=== PATIENT | male | born 1950 | race Caucasian/White ===

== ENCOUNTER → 2017-11-13 | Outpatient (CLI) | payer MEDICARE, OTHER ==
[~2017-11-13] MED LIST: AMOXICILLIN500 MG PO; ASPIR-TRIN325 MG; CLARITIN10 MG PO; DAILY VITAMIN1 EAC2 PO; EXFORGE 5 MG; FISH OIL500 M1 PO; LASIX20 MG PO; LIPITOR40 MG; NORCO 7.5-3251 EACH PO; PRILOSEC40 MG; PROZAC20 MG; VICODIN 500 MG-1 TAB PO; ZANTAC 300300 MG PO
[2017-11-13 14:55] LABS: BASO % 0.4 % (0.0-1.0); EOS # 0.1 10*3/uL (0.0-0.4); EOS % 1.5 % (1.0-4.0); HEMATOCRIT 40.8 % (42.0-52.0); LYMPH # 2.2 10*3/uL (1.3-4.4); LYMPH % 26.9 % (27.0-41.0); MEAN CELL VOLUME 91.9 fl (80.0-94.0); MEAN CORPUSCULAR HGB 31.5 pg (27.0-31.0); MEAN CORPUSCULAR HGB CONC 34.3 g/dl (33.0-37.0); MEAN PLATELET VOLUME 9.4 fl (9.6-12.3); MONO # 0.6 10*3/uL (0.1-1.0); MONO % 7.1 % (3.0-9.0); NEUT # 5.1 10*3/uL (2.3-7.9); NEUT % 63.9 % (47.0-73.0); NUCLEATED RED BLOOD CELL 0.2 % (0.0-0.0); PLATELET COUNT AUTOMATED 171 10*3/uL (130-400); RED BLOOD COUNT 4.44 10*6/uL (4.50-5.90); RED CELL DISTRI WIDTH 12.8 % (0-14.5)
[2017-11-13 15:12] LABS: ALBUMIN 3.8 gm/dl (3.1-4.5); ALKALINE PHOSPHATASE 73 U/L (45-117); BILIRUBIN, DIRECT 0.1 mg/dL (0.0-0.2); BUN 12 mg/dl (7-24); CHLORIDE 107 mmol/L (98-107); POTASSIUM 3.8 mmol/L (3.5-5.1); SGOT/AST 19 IU/L (3-35); SGPT/ALT 34 U/L (12-78); SODIUM 140 mmol/L (136-145); TOTAL PROTEIN 7.3 gm/dL (6.4-8.2)
== END | disposition home or self-care (01) ==
LOC: CT 14:34
PROVIDERS: Family Medicine
DX: K76.0 Fatty (change of) liver, not elsewhere classified (principal); J98.11 Atelectasis; R06.02 Shortness of breath; Z98.1 Arthrodesis status

== ENCOUNTER → 2017-11-29 | Outpatient (CLI) | payer MEDICARE, OTHER ==
--- NOTE | ~2017-11-29 | PF ---
[place], [place] PULMONARY FUNCTION TEST NAME: ALESSANDRA VEGA JR [facility] #: [id number] UNIT #: [id number] ROOM: DOCTOR: ATILIO JIN MD,JOVI BIRTHDATE: [birth year] DOS: 11/29/2017 PULMONARY FUNCTION TEST ORDERED BY: Dr. John Narayanan. HISTORY: The patient recorded as a 67-year-old outpatient, male, height of 66 inches, weight of 217 pounds with BMI 35. The testing was done for patient with the diagnosis of COPD with symptoms of nonproductive cough, dyspnea with exertion, rare wheezing. There was no tobacco use reported. SPIROMETRY: The FVC was recorded 2.41 liters at 64% predicted value, moderately decreased. FEV1, the patient was noted 2.03 liters at 69% of predicted value, moderately decreased as well. The ratio of FEV1/FVC was recorded at 77%, partial improvement occurred postbronchodilator for this patient, but not meeting the significant improvement of the postbronchodilator FEV1 by ATS criteria. Flow volume loop for the patient shows evidence of obstructive airway pattern. LUNG VOLUME: Thoracic gas volume recorded as 67%, residual volume 90%, total lung capacity of 68%. RV/TLC ratio 188%. Airway resistance and passive conductance noted abnormal, partial improvement post-bronchodilator test. FINAL IMPRESSION: The test was suggestive evidence of bronchial asthma. The lung diffusion could not be performed for the patient. JOVI TRIMBLE MD CM:PFREPORT:PULMONARY FUNCTION TEST 1039 00 JOVI JIN MD
== END | disposition home or self-care (01) ==
LOC: CP 06:52
DX: J44.9 Chronic obstructive pulmonary disease, unspecified (principal)

== ENCOUNTER → 2018-02-06 | Outpatient (CLI) | payer MEDICARE, OTHER ==
[~2018-02-06] MED LIST changes: +B12,B-12,B 12500 MC1 PO; +COLCHICINE0.6 M1 PO; +IBUPROFEN400 MG PO; -LIPITOR40 MG; +LIPITOR40 MG PO; +VALTREX1000 MG PO; +VITAMIN D5000 UNI1 PO
== END | disposition home or self-care (01) ==
LOC: RAD 07:38
DX: J98.6 Disorders of diaphragm (principal)

== ENCOUNTER 2018-04-23 21:06 | Inpatient (IN) | payer MEDICARE, OTHER ==
[~2018-04-23] VITALS: Ht 167.6 cm; Wt 101.7 kg
--- NOTE | ~2018-04-23 | PR ---
[place], [place] PROGRESS NOTE NAME: ALESSANDRA VEGA JR [facility] #: [id number] UNIT #: [id number] ROOM: 402 DOCTOR: ATILIO JIN MD,JOVI BIRTHDATE: [birth year] DOS: 04/26/2018 SUBJECTIVE: The patient was noted comfortable at this time with reduction of the chest pain reported by the patient. Denies symptoms of fever or chills. He has been noted with occasional pain, which was also reported in the right upper quadrant and in the right lower chest. There were no symptoms of coughing or wheezing reported. PHYSICAL EXAMINATION: VITAL SIGNS: Low-grade fever of 99.5 degree Fahrenheit, normal temperature, respiratory rate 18, heart rate 88, blood pressure 127/67. Pulse oxygen saturation on room air was 95% saturation. HEENT: No acute change. CARDIOVASCULAR: S1, S2 is audible. LUNGS: The patient was noted with decreased breath sounds in right lower chest. There was no wheezing or crackles. ABDOMEN: Soft, nontender. EXTREMITIES: Without acute edema. LABORATORY DATA: The patient's CBC today, WBC count normal, hemoglobin 12.3, eosinophils of 4.3%. BMP this morning, normal BUN and creatinine. IMPRESSION: 1. The patient with acute pericarditis, currently treated with colchicine. The patient on steroids, anti-inflammatory medication per Cardiology services. 2. Small loculated right pleural fluid area of atelectasis. There was no evidence of clinical pneumonia ____ at this time was ____ seen. PLAN OF MANAGEMENT: Continuation of current plan of management as in progress. Close monitoring for any abnormal symptoms. The patient to report to the office post-discharge. Continue other supportive therapy, plan of management, care plan and treatment and care. JOVI TRIMBLE MD CM:BREONNA [phone] JOVI JIN MD 04/27/18 0154 interface
--- NOTE | ~2018-04-23 | EKG ---
[place], [place] ELECTROCARDIOGRAM REPORT NAME: ALESSANDRA VEGA JR UNIT #: [id number] ROOM: 402 DOCTOR: LOGAN DRAFT REPORT BIRTHDATE: [birth year] [facility] Test Date: 2018-04-24 Test Time: 00:05:46 Pat Name: ALESSANDRA VEGA Department: Room: 402 Gender: M Data Visualization Developer: : 1950 Requested By: SANJEEV NAQVI Order Number: [id number] Reading MD: Russ Elaine MD Measurements Intervals [place] Rate: 103 P: 17 WA: 139 QRS: 31 QRSD: 99 T: 13 QT: 339 QTc: 444 Interpretive Statements Sinus tachycardia Abnormal R-wave progression, late transition Minimal ST elevation, inferior leads Baseline wander in lead(s) V3,V5 Compared to previous tracing, no significant change Electronically Signed On 04-24-2018 18:09:04 PST by Russ Elaine MD CM:EKGRPT:ELECTROCARDIOGRAM REPORT 0005 1809 SANJEEV MYERS DRAFT REPORT SANJEEV NAQVI DO
--- NOTE | ~2018-04-23 | EKG ---
[place], [place] ELECTROCARDIOGRAM REPORT NAME: ALESSANDRA VEGA JR UNIT #: [id number] ROOM: 402 DOCTOR: LOGAN DRAFT REPORT BIRTHDATE: [birth year] [facility] Test Date: 2018-04-24 Test Time: 02:41:09 Pat Name: ALESSANDRA VEGA Department: Room: 402 Gender: M Category Development Analyst: Nancy Ortiz : 1950 Requested By: SANJEEV NAQVI Order Number: [id number] Reading MD: Russ Elaine MD Measurements Intervals [place] Rate: 89 P: 13 CO: 140 QRS: -8 QRSD: 105 T: 21 QT: 363 QTc: 442 Interpretive Statements Sinus rhythm Abnormal R-wave progression, late transition Inferior infarct, old Minimal ST elevation, anterolateral leads No change from earlier ECG this date. Electronically Signed On 04-24-2018 18:09:51 PST by Russ Elaine MD CM:EKGRPT:ELECTROCARDIOGRAM REPORT [id number] 1809 SANJEEV MYERS DRAFT REPORT SANJEEV NAQVI DO
--- NOTE | ~2018-04-23 | PR ---
[place], [place] PROGRESS NOTE NAME: ALESSANDRA VEGA JR UNIT #: [id number] ROOM: 402 DOCTOR: JORGE FRYE MD BIRTHDATE: [birth year] DOS: 04/26/2018 SUBJECTIVE: The patient was seen at his bedside today on 04/26/2018 for followup of his acute pericarditis and pericardial effusion. Last evening, he did develop a fever. It has resolved overnight. The maximum recorded temperature was 99.5. This morning, he feels better. His chest pains are all gone and nausea is very minimal. PHYSICAL EXAMINATION: VITAL SIGNS: Today, his pulse is 87 and regular, blood pressure is 128/64. GENERAL: He is afebrile this morning. NECK: His neck is supple. He has no jugular distention. Carotids are full. LUNGS: Respirations are unlabored. Chest is clear to auscultation and percussion. HEART: Has a regular rhythm with an S4 gallop. There is no murmur or rub. ABDOMEN: Benign. EXTREMITIES: Showed no edema. LABORATORY DATA: Hemoglobin today is 12.3 with a white count of 6700, platelet count 170,000. Sodium is 141, potassium 3.7, BUN 12, and creatinine 0.96. IMPRESSION: 1. Acute pericarditis. 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 He is responding to anti-inflammatory agents as well as colchicine. I did have to decrease the dose of colchicine because of nausea, but he still seems to be doing well. 2. Recent cervical fusion. 3. Hypertension. 4. Hyperlipidemia. PLAN: From a cardiac standpoint, he may be discharged when he is ready to go, and we will see him back in the office for followup. My one concern is that he would develop constriction given the thickness of his pericardium now, but hopefully the colchicine will prevent this. I thank the hospitalist physicians for asking our advice regarding his care. [place], [place] PROGRESS NOTE NAME: ALESSANDRA VEGA JR [facility] UNIT #: [id number] ROOM: 402 DOCTOR: JORGE FRYE MD BIRTHDATE: [birth year] JORGE FRYE MD CM:PNTRANS [id number] 0002 JORGE FRYE MD 04/27/18 0001 interface
--- NOTE | ~2018-04-23 | EKG ---
[place], [place] ELECTROCARDIOGRAM REPORT NAME: ALESSANDRA VEGA JR UNIT #: [id number] ROOM: 402 DOCTOR: LOGAN DRAFT REPORT BIRTHDATE: [birth year] [facility] Test Date: 2018-04-23 Test Time: 21:11:15 Pat Name: ALESSANDRA VEGA Department: ER Room: 402 Gender: M Teacher Citizenship: Vick Burrell : 1950 Requested By: SANJEEV NAQVI Order Number: [id number] Reading MD: Russ Elaine MD Measurements Intervals [place] Rate: 110 P: 43 CO: 154 QRS: 90 QRSD: 96 T: 23 QT: 327 QTc: 443 Interpretive Statements Sinus tachycardia Borderline right axis deviation Abnormal R-wave progression, late transition Borderline ST elevation, lateral leads Electronically Signed On 04-24-2018 18:06:59 PST by Russ Eliane MD CM:EKGRPT:ELECTROCARDIOGRAM REPORT 1806 SANJEEV MYERS DRAFT REPORT SANJEEV NAQVI DO
--- NOTE | ~2018-04-23 | PR ---
[place], [place] PROGRESS NOTE NAME: ALESSANDRA VEGA JR [facility] #: [id number] UNIT #: [id number] ROOM: 402 DOCTOR: JORGE FRYE MD BIRTHDATE: [birth year] DOS: 04/25/2018 CARDIOLOGY PROGRESS NOTE SUBJECTIVE: The patient was seen at his bedside today, 04/25/2018 for followup of his pericardial effusion and chest pain. He is a 68-year-old man who has had a complicated recent history. 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 He did eventually undergo right diaphragmatic plication at [facility] in [place]. He tolerated the procedure well and was in rehab with good progress. A few days ago, he suddenly developed pleuritic chest pain. CT angiogram of the chest showed no evidence for pulmonary emboli, but he did have marked thickening of the pericardium with a modest pericardial effusion. He was hospitalized and we were asked to see the patient. He did not show any signs of tamponade and I reviewed his CT scans. The pericardial thickening is new compared to a previous CTA dated 11/13/2017, the pericardial effusion and pericardial thickening are new. An echocardiogram showed normal left ventricular function and no evidence for tamponade. The effusion appeared to be quite small. We did start him on colchicine and ibuprofen. His pains have dramatically improved, but now he has nausea, most likely due to the colchicine. PHYSICAL EXAMINATION: VITAL SIGNS: Today, his pulse is 84 and regular, blood pressure is 122/84. He is afebrile. NECK: Supple. He has no jugular distention or hepatojugular reflux. Carotids are full. LUNGS: Respirations are unlabored. Chest has decreased breath sounds at the right base, but is otherwise clear. HEART: Has a regular rhythm without murmurs, rubs, or gallops. I did not hear a rub specifically. ABDOMEN: Benign. EXTREMITIES: Showed no edema. IMPRESSION: 1. Acute pericarditis. 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 A viral infection may have been the cause. He is responding to anti-inflammatory agents along with colchicine, but has some nausea. 2. Recent cervical fusion. 3. Hypertension. 4. Hyperlipidemia. PLAN: We will decrease the colchicine to once a day and give it with food. Ibuprofen will be given as needed. I think that he can be discharged to home since he does not have any hemodynamic compromise. We will plan to see him in the office in the next month for followup. We will likely keep him on colchicine for 3 months and then repeat his echocardiogram to make sure that he has not developed any signs of constriction. [place], [place] PROGRESS NOTE NAME: ALESSANDRA VEGA JR UNIT #: [id number] ROOM: 402 DOCTOR: JORGE FRYE MD BIRTHDATE: [birth year] I thank the hospitalist physicians for asking our advice regarding his care. JORGE FRYE MD CM:PNTRANS [id number] JORGE FRYE MD 04/26/18 0625 interface
--- NOTE | ~2018-04-23 | CON ---
[place], [place] REPORT OF CONSULTATION NAME: ALESSANDRA VEGA JR [facility] #: [id number] UNIT #: [id number] ROOM: 402 DOCTOR: JOVI RENTERIA MD BIRTHDATE: [birth year] DOS: 04/25/2018 PULMONARY CONSULTATION, EVALUATION AND MANAGEMENT REASON FOR CONSULTATION: Assess the patient's symptoms of shortness of breath. HISTORY OF PRESENT ILLNESS: This is a 68-year-old white male who has been known to me from the past. The patient has been initially seen in my office on 01/30/2018. 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 The patient has been seen by Dr. Villela from [facility] in [place], [place]. The patient underwent surgical intervention, ____ of the right hemidiaphragm in 02/2018. The patient was noted good to have response to the treatment. He has been admitted to the hospital under care of the hospitalist service on the date of 04/24/2018 as the patient reporting symptoms of having increased shortness of breath that was occurring for this patient couple of days prior to admission to the hospital. The patient stated that he was panicking probably as well. Denies symptoms of fever or chills. The patient denies any symptoms of hemoptysis. He does have mild cough without any sputum expectoration. The patient denies symptoms of any chest trauma. He does complain of pain sharp at that time, on a scale of 1-10 is 6-7 in the right upper quadrant area. REVIEW OF SYSTEMS: Remaining systems were reviewed as follows: EYES: Denies burning, redness, or tenderness. EARS, NOSE, AND THROAT: Denies sore throat, hoarseness, otalgia, postnasal drainage or epistaxis. CARDIOVASCULAR: Denies anginal pain, edema, pain of the lower extremities or palpitations. GASTROINTESTINAL: Symptoms of nausea. The patient reported vomiting, hematemesis, melena, hematochezia, abdominal pain, hematemesis or melena. GENITOURINARY: No dysuria, suprapubic pain, hematuria. MUSCULOSKELETAL: No joint pain, redness, or tenderness. SKIN: Denies abnormal lesions or rashes. MUSCULOSKELETAL SYMPTOMS: Acute joint pain, redness, tenderness, or any deformities. CENTRAL NERVOUS SYSTEM: Denies any dizziness, headache, diplopia, or syncopal episodes, tingling sensation in the lower extremity or seizures. NEUROPSYCHIATRIC: The patient noted a significant history of generalized anxiety disorder, panic attacks as well. Remaining systems were reviewed, they were noted all negative. PAST MEDICAL HISTORY: The patient was known with history of: 1. Osteoarthritis. 2. Intervertebral disk disease. 3. Bronchial asthma. 4. Neurotic depression. 5. Allergic rhinitis. 6. Hypercholesterolemia. 7. Moderate obesity. [place], [place] REPORT OF CONSULTATION NAME: ALESSANDRA VEGA JR UNIT #: [id number] ROOM: [facility] DOCTOR: JOVI RENTERIA MD BIRTHDATE: [birth year] 8. Obstructive sleep apnea disorder for the patient as well. 9. Right diaphragmatic paralysis that was noted in 09/2017. SOCIAL HISTORY: The patient is a nonsmoker, lives at home, , does not have any history of alcohol, illicit, or tobacco use. He has 2 children. PAST SURGICAL HISTORY: 1. Bilateral knee replacement. 2. Rotator cuff surgery bilaterally. 3. Rhinoplasty. 4. Cataract extraction with lens implantation. 5. Fusion of the neck in 1991 and 10/07/2017. 6. Right diaphragmatic ____ in February 2018 at [facility]. FAMILY HISTORY: Father at age of 82 years with complication of dementia. Mother at the age of 7979 years old with complications of chronic obstructive pulmonary disease. HOME MEDICATIONS: Noted as: 1. Exforge 5/320 one daily. 2. Lipitor 10 mg daily. 3. Vitamin D3 5000 international units daily. 4. Prozac 10 mg daily. 5. Loratadine 10 mg daily. 6. Multivitamin 1 p.o. daily. 7. ____ 500 mg p.o. daily. 8. Prilosec daily. DRUG ALLERGY HISTORY: ALLERGY TO NITROGLYCERIN CAUSING HYPOTENSION. PHYSICAL EXAMINATION: GENERAL: This is a 68-year-old white male patient currently noted awake, alert, still noted to be somewhat nervous and anxious. VITAL SIGNS: Height were recorded on current admission by nursing staff. Height of 5 feet 6 inches, weight of 224 pounds, BMI 36. Vital signs patient which has been recorded showed normal temperature, respiratory rate 18-20, heart rate of 110-83, blood pressure 146/75-128/66. Pulse oxygen saturation recorded at rest on room air 95% saturation. HEENT: Examination shows head was atraumatic. Eyes nonicterus. NECK: Supple. CARDIOVASCULAR: S1, S2 audible. LUNGS: The patient was noted without any wheezing or crackles. Mild decreased breaths are noted in the lower lungs bilaterally. ABDOMEN: Soft with moderate obesity. Bowel sounds present. EXTREMITIES: The patient noted without acute edema. MUSCULOSKELETAL: Without acute deformities. CENTRAL NERVOUS SYSTEM: Cranial nerves 2-12 intact. No focal deficit. LABORATORY DATA: CBC that was done on 04/23/2018 as an outpatient. CBC, WBC count 11.4. Hemoglobin 13.2. The CMP that was done in the Emergency on [place], [place] REPORT OF CONSULTATION NAME: ALESSANDRA VEGA JR UNIT #: [id number] ROOM: [facility] DOCTOR: LOPEZ RENTERIA MDM BIRTHDATE: [birth year] 04/24/2018, BUN normal, creatinine normal, glucose 132. Remaining electrolytes and LFTs overall noted normal. CBC, WBC count normal, platelet count normal, hemoglobin 11.5. Troponin 3 sets on 04/24/2018 were all noted as normal. Echocardiogram was also done yesterday that had been dictated by Dr. Elaine for the patient noted left ventricle ejection fraction normal at 65%. Right ventricle function was also reported as normal. There was no wall motion abnormalities or any valvular dysfunction. CBC this morning for the patient essentially noted about the same as of yesterday. CMP this morning remains normal BUN and creatinine. ESR was 37. Review of the radiology data. The chest x-ray that was done on 04/23/2018 was reviewed, does not show any evidence of pulmonary embolism. Small area of atelectasis noted associated with small loculated pleural fluid in the right lower chest, impression: Small pleural fluid was noted on the CT scan of the chest with the thickening of the pericardium. IMPRESSION: 1. The patient is currently admitted with symptoms of shortness of breath was currently assessed by the Cardiology Service for possibility of pericarditis. The patient without any cardiac tamponade or large fluid. Inflammatory changes of Aliya syndrome was considered. 2. Loculated pleural fluid in the right lower chest, most likely for surgical finding. There were no signs of active infection. The patient noted clinically for patient pneumonia or others. 3. The patient with recent ____ of the right diaphragmatic paralysis in February 2018 at [facility]. The pain the patient reported could be post-thoracotomy that has not been noted persistent and noted at times in the right upper quadrant and in the right lower chest wall. 3. History of mild bronchial asthma as well, which has been known previously. PLAN OF MANAGEMENT: Agree with use of colchicine. The patient does not require any antibiotic administration. At this time because lack of findings: The patient suggestive of acute pneumonia. Other infections. Symptomatic management to be continued as well. Shortness of breath has resolved with maximizing current medical management therapy, plan of care. Continue nonsteroidal anti-inflammatory medication as well for the medical management of acute pericarditis for the patient possibility. Supportive therapy as a plan and management, care plan, and other treatment. Usual care with other treatment therapy, plan of care with additional changes will be ordered based on progression of his illness. Thanks for allowing me to participate in the care of this patient. [place], [place] REPORT OF CONSULTATION NAME: ALESSANDRA VEGA JR UNIT #: [id number] ROOM: 402 DOCTOR: JOVI RENTERIA MD BIRTHDATE: [birth year] JOVI TRIMBLE MD CM:CONSTR:REPORT OF CONSULTATION 1201 04/25/18 1733 interface
--- NOTE | ~2018-04-23 | PR ---
[place], [place] PROGRESS NOTE NAME: ALESSANDRA VEGA JR UNIT #: [id number] ROOM: 402 DOCTOR: USMAN GUAJARDO BIRTHDATE: [birth year] DOS: 04/26/2018 PULMONARY PROGRESS NOTE SUBJECTIVE: The patient was noted sitting comfortably at his bed at this time without any signs of acute distress. The patient states he is breathing well and believes he is near his normal breathing baseline. The patient believes his shortness of breath was brought on by his anxiety as well as his pain whenever he used to take a deep breath in and out. The patient denies symptoms of fevers or chills, but still notes chest pain. OBJECTIVE: VITAL SIGNS: Temperature normal, respiratory rate 18, heart rate 88, blood pressure 127/57, pulse oxygen saturation on room air 95% saturation. HEENT: Head is atraumatic. Eyes, nonicterus. NECK: Supple. CARDIOVASCULAR: S1 and S2 audible. RESPIRATORY: Lungs clear throughout without crackles or apparent wheezing at this time. EXTREMITIES: Without acute edema. CENTRAL NERVOUS SYSTEM: Grossly intact. LABORATORY DATA: CBC on 04/26/2018, white blood cell count 6.7, hemoglobin 12.3, platelet count 170. IMPRESSION: 1. Symptoms of shortness of breath, pleuritic chest pain, possibly caused by pericarditis, inflammatory changes of Aliya syndrome was considered. 2. Loculated pleural fluid in the right lower chest; however, no signs of active infection. 3. Right diaphragmatic paralysis in February 2018, at [facility]. 4. History of mild bronchial asthma as well. PLAN OF MANAGEMENT: The patient may be discharged from a pulmonary standpoint at this time. Shortness of breath resolved. Continue current management of the patient for acute pericarditis possibility. Plan of care with additional changes will be ordered based on progression of patient's illness. USMAN GUAJARDO DO [place], [place] PROGRESS NOTE NAME: ALESSANDRA VEGA JR UNIT #: [id number] ROOM: 402 DOCTOR: USMAN GUAJARDO BIRTHDATE: [birth year] JOVI TRIMBLE MD CM:BREONNA [phone] USMAN GUAJARDO 04/27/18 1608 interface
[~2018-04-23 21:06] MED LIST changes: -B12,B-12,B 12500 MC1 PO; -COLCHICINE0.6 M1 PO; -IBUPROFEN400 MG PO; -VALTREX1000 MG PO; -VITAMIN D5000 UNI1 PO
[2018-04-23 21:10] VITALS: BP 146/75
[2018-04-23 21:26] LABS: BASO % 0.3 % (0.0-1.0); EOS % 0.3 % (1.0-4.0); HEMATOCRIT 38.5 % (42.0-52.0); HEMOGLOBIN 13.3 g/dl (14.0-18.0); LYMPH # 1.2 10*3/uL (1.3-4.4); LYMPH % 10.8 % (27.0-41.0); MEAN CELL VOLUME 89.1 fl (80.0-94.0); MEAN CORPUSCULAR HGB 30.8 pg (27.0-31.0); MEAN CORPUSCULAR HGB CONC 34.5 g/dl (33.0-37.0); MEAN PLATELET VOLUME 10.6 fl (9.6-12.3); MONO # 0.7 10*3/uL (0.1-1.0); MONO % 6.5 % (3.0-9.0); NEUT % 81.7 % (47.0-73.0); PLATELET COUNT AUTOMATED 247 10*3/uL (130-400); RED BLOOD COUNT 4.32 10*6/uL (4.50-5.90); RED CELL DISTRI WIDTH 13.6 % (0-14.5); WHITE BLOOD COUNT 11.1 10*3/uL (4.8-10.8)
[2018-04-23 21:43] LABS: ACT PARTIAL THROMBO TIME 21.5 SECONDS (20.8-31.5); INTERNATIONAL NORM RATIO 0.9 (2.0-3.5)
[2018-04-23 21:45] LABS: ALBUMIN 3.6 gm/dl (3.1-4.5); ALKALINE PHOSPHATASE 70 U/L (45-117); BUN 19 mg/dl (7-24); CHLORIDE 102 mmol/L (98-107); CREATININE 1.16 mg/dL (0.70-1.30); POTASSIUM 4.3 mmol/L (3.5-5.1); SGOT/AST 28 IU/L (3-35); SGPT/ALT 24 U/L (12-78); SODIUM 139 mmol/L (136-145); TOTAL PROTEIN 7.5 gm/dL (6.4-8.2)
[2018-04-23 21:47] LABS: TROPONIN I < 0.015 ng/ml (<0.045)
[2018-04-23 21:55] VITALS: BP 145/78
[2018-04-23 22:29] VITALS: BP 118/64
[2018-04-23 22:54] VITALS: BP 121/74
[2018-04-24 02:49] VITALS: BP 110/65
[2018-04-24 04:20] VITALS: BP 113/82
[2018-04-24] MEDS ORDERED: VITAMIN D5000 UNI1 PO (05:31)
[2018-04-24 05:40] LABS: ALBUMIN 3.1 gm/dl (3.1-4.5); ALKALINE PHOSPHATASE 56 U/L (45-117); BUN 20 mg/dl (7-24); CHLORIDE 109 mmol/L (98-107); CHOLESTEROL 128 mg/dL (<200); CREATININE 1.03 mg/dL (0.70-1.30); FREE T4 0.81 ng/dl (0.76-1.46); HDL CHOLESTEROL 43 mg/dl (40-60); LDL CHOLESTEROL 57 mg/dL (9-159); PHOSPHOROUS 3.8 mg/dL (2.5-4.9); POTASSIUM 3.5 mmol/L (3.5-5.1); SGOT/AST 13 IU/L (3-35); SGPT/ALT 20 U/L (12-78); SODIUM 138 mmol/L (136-145); TOTAL PROTEIN 6.5 gm/dL (6.4-8.2); TRIGLYCERIDES 141 mg/dl (<150); VLDL CHOLESTEROL 28 mg/dL (6-40)
[2018-04-24 06:11] LABS: BASO % 0.2 % (0.0-1.0); EOS % 0.3 % (1.0-4.0); HEMATOCRIT 33.9 % (42.0-52.0); HEMOGLOBIN 11.5 g/dl (14.0-18.0); LYMPH % 19.5 % (27.0-41.0); MEAN CELL VOLUME 91.1 fl (80.0-94.0); MEAN CORPUSCULAR HGB 30.9 pg (27.0-31.0); MEAN CORPUSCULAR HGB CONC 33.9 g/dl (33.0-37.0); MEAN PLATELET VOLUME 10.2 fl (9.6-12.3); NEUT # 7.3 10*3/uL (2.3-7.9); NEUT % 69.8 % (47.0-73.0); RED BLOOD COUNT 3.72 10*6/uL (4.50-5.90); RED CELL DISTRI WIDTH 13.8 % (0-14.5); WHITE BLOOD COUNT 10.4 10*3/uL (4.8-10.8)
[2018-04-24 06:29] LABS: PLATELET COUNT AUTOMATED 152 10*3/uL (130-400)
[2018-04-24 07:01] LABS: VITAMIN D, 25-HYDROXY 28.3 ng/mL (30-100)
[2018-04-24 08:00] VITALS: BP 94/78
[2018-04-24 12:00] VITALS: BP 130/73
[2018-04-24 16:00] VITALS: BP 113/63; BP 134/59
[2018-04-24 20:00] VITALS: BP 128/66
[2018-04-25] VITALS: BP 119/50
[2018-04-25 07:04] LABS: BASO % 0.2 % (0.0-1.0); EOS # 0.3 10*3/uL (0.0-0.4); EOS % 3.1 % (1.0-4.0); HEMATOCRIT 38.2 % (42.0-52.0); HEMOGLOBIN 12.4 g/dl (14.0-18.0); LYMPH % 21.8 % (27.0-41.0); MEAN CELL VOLUME 91.2 fl (80.0-94.0); MEAN CORPUSCULAR HGB 29.6 pg (27.0-31.0); MEAN CORPUSCULAR HGB CONC 32.5 g/dl (33.0-37.0); MEAN PLATELET VOLUME 10.2 fl (9.6-12.3); MONO # 0.6 10*3/uL (0.1-1.0); MONO % 6.6 % (3.0-9.0); NEUT # 6.3 10*3/uL (2.3-7.9); PLATELET COUNT AUTOMATED 164 10*3/uL (130-400); RED BLOOD COUNT 4.19 10*6/uL (4.50-5.90); RED CELL DISTRI WIDTH 13.4 % (0-14.5); WHITE BLOOD COUNT 9.3 10*3/uL (4.8-10.8)
[2018-04-25 07:12] LABS: ALBUMIN 3.3 gm/dl (3.1-4.5); ALKALINE PHOSPHATASE 69 U/L (45-117); BUN 14 mg/dl (7-24); CHLORIDE 106 mmol/L (98-107); CREATININE 0.94 mg/dL (0.70-1.30); POTASSIUM 3.8 mmol/L (3.5-5.1); SGOT/AST 10 IU/L (3-35); SGPT/ALT 18 U/L (12-78); SODIUM 142 mmol/L (136-145); TOTAL PROTEIN 7.3 gm/dL (6.4-8.2)
[2018-04-25 08:00] VITALS: BP 122/84
[2018-04-25 12:00] VITALS: BP 121/55
[2018-04-25 16:00] VITALS: BP 116/50
[2018-04-25 20:00] VITALS: BP 124/74
[2018-04-26] VITALS: BP 128/64
[2018-04-26 06:02] LABS: BASO % 0.4 % (0.0-1.0); EOS # 0.3 10*3/uL (0.0-0.4); EOS % 4.3 % (1.0-4.0); HEMATOCRIT 36.1 % (42.0-52.0); HEMOGLOBIN 12.3 g/dl (14.0-18.0); LYMPH # 2.4 10*3/uL (1.3-4.4); LYMPH % 35.3 % (27.0-41.0); MEAN CELL VOLUME 90.3 fl (80.0-94.0); MEAN CORPUSCULAR HGB 30.8 pg (27.0-31.0); MEAN CORPUSCULAR HGB CONC 34.1 g/dl (33.0-37.0); MEAN PLATELET VOLUME 9.7 fl (9.6-12.3); MONO # 0.5 10*3/uL (0.1-1.0); MONO % 6.9 % (3.0-9.0); NEUT # 3.5 10*3/uL (2.3-7.9); PLATELET COUNT AUTOMATED 170 10*3/uL (130-400); RED CELL DISTRI WIDTH 13.2 % (0-14.5); WHITE BLOOD COUNT 6.7 10*3/uL (4.8-10.8)
[2018-04-26 06:06] LABS: BUN 12 mg/dl (7-24); CHLORIDE 106 mmol/L (98-107); CREATININE 0.96 mg/dL (0.70-1.30); POTASSIUM 3.7 mmol/L (3.5-5.1); SODIUM 141 mmol/L (136-145)
[2018-04-26 12:00] VITALS: BP 127/57
[2018-04-26] MEDS ORDERED: COLCHICINE0.6 M1 PO (14:42)
[2018-04-26] MEDS ORDERED: VALTREX1000 MG PO (14:42)
[2018-04-26] MEDS ORDERED: B12,B-12,B 12500 MC1 PO (14:42)
[2018-04-26] MEDS ORDERED: IBUPROFEN400 MG PO (14:42)
== END 2018-04-26 17:02 | disposition home or self-care (01) | DRG 315 ==
LOC: ED 21:06 → 4E 04-24 03:30 → EDHOLD 04-24 03:30 → 4E 04-24 03:39
PROVIDERS: Emergency Medicine; Internal Medicine
DX: I30.9 Acute pericarditis, unspecified (principal); J90 Pleural effusion, not elsewhere classified; J98.11 Atelectasis; K21.9 Gastro-esophageal reflux disease without esophagitis; I10 Essential (primary) hypertension; E66.01 Morbid (severe) obesity due to excess calories; R00.0 Tachycardia, unspecified; D72.829 Elevated white blood cell count, unspecified; E83.41 Hypermagnesemia; B02.9 Zoster without complications; Z96.653 Presence of artificial knee joint, bilateral; E78.00 Pure hypercholesterolemia, unspecified; J98.6 Disorders of diaphragm; G47.33 Obstructive sleep apnea (adult) (pediatric); F32.9 Major depressive disorder, single episode, unspecified; M19.90 Unspecified osteoarthritis, unspecified site; R73.9 Hyperglycemia, unspecified; Z96.1 Presence of intraocular lens; D64.9 Anemia, unspecified; K76.0 Fatty (change of) liver, not elsewhere classified; R16.0 Hepatomegaly, not elsewhere classified; F41.1 Generalized anxiety disorder; J45.909 Unspecified asthma, uncomplicated; E78.5 Hyperlipidemia, unspecified; Z88.8 Allergy status to other drugs, medicaments and biological substances; Z79.82 Long term (current) use of aspirin; Z98.1 Arthrodesis status; Z82.0 Family history of epilepsy and other diseases of the nervous system; Z83.6 Family history of other diseases of the respiratory system; Z79.899 Other long term (current) drug therapy; Z98.49 Cataract extraction status, unspecified eye; Z68.36 Body mass index [BMI] 36.0-36.9, adult

== ENCOUNTER 2018-05-19 21:30 | Inpatient (IN) | payer MEDICARE, OTHER ==
[~2018-05-19] VITALS: Ht 167.6 cm; Wt 103.9 kg
--- NOTE | ~2018-05-19 | PR ---
[place], [place] PROGRESS NOTE NAME: BRANDY VEGA JRWILFRED [place] UNIT #: [id number] ROOM: 519 DOCTOR: JORGE FRYE MD BIRTHDATE: [birth year] DOS: 05/22/2018 SUBJECTIVE: The patient was seen at his bedside today 05/22/2018 for followup of his pericarditis. He initially presented early in April 2018 with acute pericarditis which was improved with anti-inflammatory medications. When his pain improved, he stopped taking ibuprofen, although he did continue to take colchicine. He was doing well until 05/19/2018 when he developed pleuritic chest pain again. Evaluation in the hospital showed a decrease in his pericardial thickening, but a slight increase in pericardial fluid. He still did not show any clinical, echocardiographic or Doppler evidence for tamponade. He was placed back on ibuprofen and his symptoms have improved dramatically over the last 48 hours. PHYSICAL EXAMINATION: VITAL SIGNS: Today, his pulse is 78 and regular, blood pressure is 119/63. He is afebrile. NECK: Supple. He has no jugular distention. Carotids are full. LUNGS: Respirations are unlabored. Chest is clear. HEART: Has a regular rhythm. He has a fourth heart sound, but no third heart sound or murmur. PMI is not displaced. ABDOMEN: Soft and normally active. EXTREMITIES: Showed no edema. IMPRESSION: 1. Pericarditis. The patient still does have evidence for inflammation; however, the thickening of his pericardium has improved compared to 3 weeks ago. 2. History of asthma. 3. 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 PLAN: The patient may be discharged to home on colchicine 0.6 mg daily and ibuprofen 600 mg 3 times a day. I would like him to follow up in the office in 3-4 weeks. I thank the hospitalist physicians for asking our advice regarding his care. [place], [place] PROGRESS NOTE NAME: GARYJOHN REYNAALESSANDRA [place] UNIT #: [id number] ROOM: 519 DOCTOR: JORGE FRYE MD BIRTHDATE: [birth year] JORGE FRYE MD CM:PNTRANS [phone] JORGE FRYE MD 05/23/18 0952 interface
--- NOTE | ~2018-05-19 | EKG ---
[place], [place] ELECTROCARDIOGRAM REPORT NAME: ALESSANDRA VEGA JR UNIT #: [id number] ROOM: 519 DOCTOR: LOGAN DRAFT REPORT BIRTHDATE: [birth year] [facility] Test Date: 2018-05-20 Test Time: 00:15:57 Pat Name: ALESSANDRA VEGA Department: Room: 519 Gender: M Ventilating Expert: : 1950 Requested By: SANJEEV NAQVI Order Number: [id number] Reading MD: Angelique Salmeron MD Measurements Intervals [place] Rate: 79 P: 18 PA: 162 QRS: -19 QRSD: 99 T: 13 QT: 382 QTc: 438 Interpretive Statements Sinus rhythm Abnormal R-wave progression, late transition Inferior infarct, old ST elevation, consider anterolateral injury Compared to ECG 04/24/2018 02:41:09 No significant changes Electronically Signed On 05-21-2018 12:01:55 PST by Angelique Salmeron MD CM:EKGRPT:ELECTROCARDIOGRAM REPORT 0015 1201 SANJEEV MYERS DRAFT REPORT SANJEEV NAQVI DO
--- NOTE | ~2018-05-19 | EKG ---
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
--- NOTE | ~2018-05-19 | EKG ---
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
--- NOTE | ~2018-05-19 | CON ---
[place], [place] REPORT OF CONSULTATION NAME: ALESSANDRA VEGA JR [facility] #: [id number] UNIT #: [id number] ROOM: 519 DOCTOR: JORGE FRYE MD BIRTHDATE: [birth year] DOS: 05/20/2019 CARDIOLOGY CONSULTATION HISTORY OF PRESENT ILLNESS: The patient is a 68-year-old man who initially presented to the hospital in early 04/2018 with complaints of chest pain. He does have a history of hypertension, hyperlipidemia, gastroesophageal reflux disease, asthma, and anxiety. He did undergo a cervical spine fusion in 09/2017, complicated by a right phrenic nerve injury, necessitating diaphragm plication, which was done in 02/2018. He was doing well until 04/23/2018 when he developed a sharp pleuritic chest pain exacerbated by inspiration and relieved by sitting forward. He presented to the Emergency Room where chest x-ray showed a small right pleural effusion and CTA showed a small pericardial effusion. We were asked to see the patient at that point. An echocardiogram on 04/24/2018 showed normal left ventricular size with mild concentric left ventricular hypertrophy, normal segmental wall motion, and normal systolic function with stage 1 diastolic relaxation abnormalities. The left atrium was mildly enlarged. The inferior vena cava was mildly dilated with decreased inspiratory collapse. The pericardium showed moderate thickening with a small pericardial effusion, but there was no Doppler evidence for tamponade. The patient was treated with anti-inflammatory drugs and improved dramatically. He was also placed on colchicine. The patient was discharged to home and seemed to do well until yesterday. He stated that he had stopped taking ibuprofen because he had no pain, but did continue to take the colchicine. Yesterday, the pains returned and were very similar to those on initial presentation. The patient had pain with inspiration and difficulty breathing because of the pain. He denied fevers or sweats. He presented to the Emergency Room where he was treated with narcotic pain medications and did improve somewhat. A stress test was ordered and we were asked to see him. PAST MEDICAL HISTORY: Includes: 1. Gastroesophageal reflux disease. 2. Hepatic steatosis with hepatomegaly. 3. Hyperlipidemia. 4. Essential hypertension. 5. Morbid obesity. 6. Generalized anxiety disorder. 7. History of cervical spine fusion on 09/2017. 8. 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 The patient underwent plication of the diaphragm 02/2018. 9. 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 FAMILY HISTORY: The patient's father of complications of Alzheimer disease. His mother of chronic obstructive pulmonary disease. A half-brother at age 40-50 from sudden cardiac . A sister is alive and well. [place], [place] REPORT OF CONSULTATION NAME: ALESSANDRA VEGA JR UNIT #: [id number] ROOM: [facility] DOCTOR: JORGE FRYE MD BIRTHDATE: [birth year] MEDICATIONS: Medications prior to admission, atorvastatin 10 mg daily, cholecalciferol 5000 units daily, colchicine 0.6 mg daily, cyanocobalamin 500 mcg p.o. daily, ibuprofen 400 mg q. 8 hours prescribed; however, the patient has not taken any lately because he has not had chest pain until yesterday, loratadine 10 mg daily, multivitamin daily, omega 3 fish oil 500 mg daily, vitamin E 400 units daily, amlodipine with valsartan 5/320 once a day, and Fluoxetine 20 mg daily. ALLERGIES: HE LISTS AN ALLERGY TO NITROGLYCERIN. REVIEW OF SYSTEMS: The patient denies diplopia or loss of vision. He denies fevers, chills, sweats or recent weight change. He denies any focal weakness. He denies lightheadedness or syncope. He denies nausea or vomiting, but he did have one episode of vomiting last evening, which was not preceded by nausea. He denies change in bowel or bladder habits. He denies hemoptysis or hematemesis. He denies blood in his stools or urine. He denies any skin rashes. He denies any peripheral edema. Remainder of the review of systems is negative except as noted above. SOCIAL HISTORY: The patient does not smoke or drink alcohol. He does not take any illicit drugs. PHYSICAL EXAMINATION: GENERAL: The patient is well-nourished white male. He is awake, alert and oriented. VITAL SIGNS: Pulse is 87 and regular, blood pressure 124/82, he is afebrile. He weighs 103.9 kg, and has a body mass index of 37. HEENT: Normocephalic and atraumatic. Extraocular muscles are intact. Sclerae are clear. Pupils equal, round and reactive to light. The oral mucosa is moist. Tongue is midline. NECK: His neck is supple. He has no jugular distention. Carotids are full, and I heard no bruits. He had no neck or supraclavicular masses, no thyromegaly. RESPIRATORY: Respirations were unlabored at rest. He does still have pleuritic chest pain. The lungs were clear and I heard no rubs or rales. He had no wheezes. The PMI was not displaced. There was no precordial heave, lift or thrill, and I could not reproduce his pain by palpation of his chest. CARDIOVASCULAR: His heart has a regular rhythm. He has a fourth heart sound, but no third heart sound or significant murmur. The PMI was not displaced. There was no precordial heave, lift or thrill. I heard no rubs. ABDOMEN: Soft and normally active without masses, organomegaly or bruits. EXTREMITIES: Showed no edema. Peripheral pulses were palpable in the feet. LABORATORY DATA: Hemoglobin is 13.7, white count 14,700, and platelet count 162,000. INR 0.9. Sodium 141, potassium 4.0, chloride 104, CO2 of 25, BUN 20, creatinine 1.53. Estimated GFR is 45. Troponin levels have been negative and proBNP level was 45. IMPRESSION AND PLAN: Pleuritic chest pain. 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 He is having a recurrence of symptoms and it is [place], [place] REPORT OF CONSULTATION NAME: ALESSANDRA VEGA JR UNIT #: [id number] ROOM: 519 DOCTOR: JORGE FRYE MD BIRTHDATE: [birth year] likely that his inflammation has never gone away as of this time. This may be due to the fact that he stopped taking anti-inflammatory drugs when he started feeling better. An underlying connective tissue disease should also be considered. For now, we will proceed with a stress test that was ordered, but I do not believe that he will show signs of coronary artery disease or if he does that these explain his pains. We will repeat an echocardiogram and a chest x-ray and resume his anti-inflammatory drugs. Further recommendations depend upon review of the studies. I thank the hospitalist physicians for asking our advice regarding his care. JORGE FRYE MD CM:CONSTR:REPORT OF CONSULTATION 1006 05/22/18 1357 interface
--- NOTE | ~2018-05-19 | EKG ---
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
[~2018-05-19 21:30] MED LIST changes: +B12,B-12,B 12500 MC1 PO; +COLCHICINE0.6 M1 PO; +IBUPROFEN400 MG PO; +LIPITOR20 MG PO; -LIPITOR40 MG PO; +VALTREX1000 MG PO; +VITAMIN D5000 UNI1 PO
[2018-05-19 21:32] VITALS: BP 163/125
[2018-05-19 22:00] LABS: BASO % 0.2 % (0.0-1.0); EOS # 0.2 10*3/uL (0.0-0.4); EOS % 1.7 % (1.0-4.0); HEMATOCRIT 38.7 % (42.0-52.0); HEMOGLOBIN 13.2 g/dl (14.0-18.0); LYMPH # 3.2 10*3/uL (1.3-4.4); MEAN CELL VOLUME 91.3 fl (80.0-94.0); MEAN CORPUSCULAR HGB 31.1 pg (27.0-31.0); MEAN CORPUSCULAR HGB CONC 34.1 g/dl (33.0-37.0); MEAN PLATELET VOLUME 10.3 fl (9.6-12.3); MONO # 0.9 10*3/uL (0.1-1.0); MONO % 7.4 % (3.0-9.0); NEUT # 7.5 10*3/uL (2.3-7.9); NEUT % 63.5 % (47.0-73.0); PLATELET COUNT AUTOMATED 179 10*3/uL (130-400); RED BLOOD COUNT 4.24 10*6/uL (4.50-5.90); RED CELL DISTRI WIDTH 13.7 % (0-14.5); WHITE BLOOD COUNT 11.8 10*3/uL (4.8-10.8)
[2018-05-19 22:06] VITALS: BP 87/48
--- NOTE | 2018-05-19 22:10 | NUR ---
PATIENT IN BED SITTING UP AWAKE. FAMILY AT BEDSIDE. 100% POX ON 2LPM. RESP EASY AND NONLABORED. AOX3. NO DISTRESS NOTED. RN WILL CONT TO MONITOR
[2018-05-19 22:12] LABS: ACT PARTIAL THROMBO TIME 19.1 SECONDS (20.8-31.5); INTERNATIONAL NORM RATIO 0.9 (2.0-3.5)
[2018-05-19 22:17] LABS: ALBUMIN 3.8 gm/dl (3.1-4.5); ALKALINE PHOSPHATASE 74 U/L (45-117); BUN 15 mg/dl (7-24); CHLORIDE 104 mmol/L (98-107); CREATININE 1.29 mg/dL (0.70-1.30); POTASSIUM 3.3 mmol/L (3.5-5.1); SGOT/AST 33 IU/L (3-35); SGPT/ALT 52 U/L (12-78); SODIUM 141 mmol/L (136-145)
[2018-05-19 22:18] VITALS: BP 107/70
[2018-05-19 22:27] LABS: TROPONIN I < 0.015 ng/ml (<0.045)
[2018-05-19 22:34] VITALS: BP 127/77
[2018-05-19 22:49] VITALS: BP 120/85
[2018-05-19 23:46] VITALS: BP 105/65
--- NOTE | 2018-05-20 01:24 | NUR ---
NURSE TO NURSE REPORT GIVEN AT BEDSIDE TO NURSE COLVIN
[2018-05-20 01:30] VITALS: BP 124/82
--- NOTE | 2018-05-20 01:30 | NUR ---
A 68, admitted to , under the services of RAÚL Lara DO with a diagnosis of CHEST PAIN. Chief complaint is CHEST PAIN,SHORTNESS OF BREATH. Patient arrived via bed from ER. Monitor applied. Initial assessment completed. Vital signs taken and recorded. RAÚL LARA DO notified of admission to the unit. Orders received. See assessment for past medical history, medications and allergies. Patient and/or family oriented to unit. [facility] visitation policy reviewed. Clothing/patient valuable form completed. CHEO DENNIS
--- NOTE | 2018-05-20 01:44 | NUR ---
CALLED DR. FRYE ANSWERING SERVICE MADE AWARE OF CONSULT.
[2018-05-20] MEDS ORDERED: VITAMIN E400 UNI2 PO (01:46)
--- NOTE | 2018-05-20 01:46 | NUR ---
DR. GALARZA RETURNED CALL. STATES DR. FRYE WITH SEE PT TOMORROW.
--- NOTE | 2018-05-20 02:10 | NUR ---
MEDICATED WITH MORPHINE IV PER PRN ORDER, SEE EMAR. FOR C/O MIDSTERNAL CHEST PAIN ALSO PAIN UNDER LEFT SIDE RIBS AND BACK PAIN, RATES PAIN 10 ON PAIN SCALE 0-10. CALL LIGHT IN REACH. PT SITTING UP IN RECLINER CHAIR.
--- NOTE | 2018-05-20 02:35 | NUR ---
SITTING UP IN CHAIR. RESP-24. STATES PAIN MEDICATION IS HELPING. DENIES PAIN IN BACK. OXYGEN IN USE. CALL LIGHT IN REACH.
[2018-05-20 03:48] LABS: BASO % 0.1 % (0.0-1.0); HEMATOCRIT 39.8 % (42.0-52.0); HEMOGLOBIN 13.7 g/dl (14.0-18.0); LYMPH % 6.7 % (27.0-41.0); MEAN CELL VOLUME 90.5 fl (80.0-94.0); MEAN CORPUSCULAR HGB 31.1 pg (27.0-31.0); MEAN CORPUSCULAR HGB CONC 34.4 g/dl (33.0-37.0); MEAN PLATELET VOLUME 9.9 fl (9.6-12.3); MONO % 6.5 % (3.0-9.0); NEUT # 12.7 10*3/uL (2.3-7.9); NEUT % 86.3 % (47.0-73.0); PLATELET COUNT AUTOMATED 162 10*3/uL (130-400); RED CELL DISTRI WIDTH 13.9 % (0-14.5); WHITE BLOOD COUNT 14.7 10*3/uL (4.8-10.8)
[2018-05-20 04:00] LABS: CREATININE 1.53 mg/dL (0.70-1.30); PHOSPHOROUS 4.2 mg/dL (2.5-4.9)
--- NOTE | 2018-05-20 04:00 | NUR ---
SLEEPING IN RECLINER CHAIR. RESP-EASY AND REGULAR. CALL LIGHT IN REACH.
--- NOTE | 2018-05-20 05:57 | NUR ---
PT SITTING UP IN RECLINER CHAIR. C/O LEFT MIDSTERNAL AREA AND UNDER LEFT RIBS PAIN, RATES PAIN 8 OR 9 ON PAIN SCALE. MEDICATED WITH NORCO WITH SIP OF WATER. NPO FOR TEST. CALL LIGHT IN REACH.
--- NOTE | 2018-05-20 09:30 | NUR ---
INFORMED SIGNED CONSENT OBTAINED FOR LEXISCAN STRESS TEST WITH DR FRYE. RESTING EKG NSR HR 83 BP 80/68. PULSE OX 94% LUNGS CLEARLY DIMINISHED. PT COMPLETED ONE MINUTE OF A LEXISCAN PROTOCOL WITH PT RECEIVING LEXISCAN 0.4MG OVER10 SECONDS[address] NO ST CHANGES OR ARRHYTHMIAS NOTED. PT DID C/O SOB. LAST RECOVERY HR 90, BP 88/64. WAITING NUCLEAR SCANNING IN STABLE CONDITION.
[2018-05-20 12:00] VITALS: BP 108/90
[2018-05-20 16:00] VITALS: BP 102/66
--- NOTE | 2018-05-20 19:02 | NUR ---
PATIENT RESTING IN BED SIDE RECLINER. DENIES ANY NEEDS OR COMPLAINTS AT THIS TIME. CALL LIGHT IS WITHIN REACH. ENCOURAGED TO USE CALL LIGHT FOR NEEDS. WILL CONTINUE TO MONITOR.
[2018-05-20 20:00] VITALS: BP 98/51
[2018-05-21] VITALS: BP 101/69
--- NOTE | 2018-05-21 02:21 | NUR ---
PATIENT RESTING IN BED SIDE RECLINER WITH EYES CLOSED. RESPIRATIONS ARE EASY AND REGULAR. NO DISTRESS IS NOTED. CALL LIGHT IS WITHIN REACH. WILL MONITOR.
[2018-05-21 07:08] LABS: RHEUMATOID ARTHRITIS FACTOR 13.9 IU/mL (0.0-13.9)
[2018-05-21 07:32] LABS: ALBUMIN 3.1 gm/dl (3.1-4.5); BUN 28 mg/dl (7-24); CHLORIDE 103 mmol/L (98-107); CREATININE 1.31 mg/dL (0.70-1.30); PHOSPHOROUS 2.9 mg/dL (2.5-4.9); POTASSIUM 3.8 mmol/L (3.5-5.1); SODIUM 139 mmol/L (136-145)
--- NOTE | 2018-05-21 07:43 | NUR ---
PT MEDICATED WITH PRN ZOFRAN FOR C/O NAUSEA. WILL CONTINUE TO MONITOR.
--- NOTE | 2018-05-21 09:00 | NUR ---
PRN ZOFRAN EFFECTIVE PER PT
--- NOTE | 2018-05-21 11:20 | NUR ---
RN ASSUMED CARE OF THIS PATIENT AT THIS TIME. BEDSIDE REPORT RECIEVED FROM TYRONE PALENCIA. PATIENT DENIES COMPLAINTS AT THIS TIME. CALL LIGHT WITHIN REACH. RN WILL CONTINUE TO MONITOR
[2018-05-21 12:00] VITALS: BP 107/59
[2018-05-21 16:00] VITALS: BP 125/59
[2018-05-21 20:00] VITALS: BP 133/94; BP 144/98
[2018-05-22] VITALS: BP 163/84
[2018-05-22 12:00] VITALS: BP 125/69; BP 135/79
[2018-05-22 16:00] VITALS: BP 119/63
--- NOTE | 2018-05-22 18:00 | NUR ---
PT DISCHARGED HOME AT THIS TIME. [place] AND MEDICAID BILLER DC'D. FOLLOW UP CARE DISCUSSED. PT AMBULATED OFF THE FLOOR WITH HIS .
[2018-06-12] MEDS ORDERED: TYLENOL EXTRA500 MG PO (12:19)
== END 2018-05-22 18:00 | disposition home or self-care (01) | DRG 314 ==
LOC: ED 21:30 → EDHOLD 23:36 → 5E 23:36
PROVIDERS: Emergency Medicine; Internal Medicine Cardiovascular Disease; Registered Nurse; Student in an Organized Health Care Education/Training Program; ADMIT Internal Medicine
DX: I31.9 Disease of pericardium, unspecified (principal); N17.0 Acute kidney failure with tubular necrosis; E44.0 Moderate protein-calorie malnutrition; J98.11 Atelectasis; D64.9 Anemia, unspecified; R73.9 Hyperglycemia, unspecified; E78.2 Mixed hyperlipidemia; K21.9 Gastro-esophageal reflux disease without esophagitis; F41.1 Generalized anxiety disorder; M10.9 Gout, unspecified; M19.90 Unspecified osteoarthritis, unspecified site; M79.10 Myalgia, unspecified site; J45.909 Unspecified asthma, uncomplicated; E66.01 Morbid (severe) obesity due to excess calories; R09.1 Pleurisy; I31.3 Pericardial effusion (noninflammatory); I11.9 Hypertensive heart disease without heart failure; I25.10 Atherosclerotic heart disease of native coronary artery without angina pectoris; Z88.8 Allergy status to other drugs, medicaments and biological substances; Z98.1 Arthrodesis status; Z90.49 Acquired absence of other specified parts of digestive tract; Z82.5 Family history of asthma and other chronic lower respiratory diseases; Z82.41 Family history of sudden cardiac death; Z82.0 Family history of epilepsy and other diseases of the nervous system; Z79.899 Other long term (current) drug therapy; Z68.36 Body mass index [BMI] 36.0-36.9, adult

== ENCOUNTER → 2018-06-05 | Outpatient (CLI) | payer MEDICARE, OTHER ==
[~2018-06-05] MED LIST changes: +TYLENOL EXTRA500 MG PO; +VITAMIN E400 UNI2 PO
== END | disposition home or self-care (01) ==
LOC: CT 10:52
DX: J90 Pleural effusion, not elsewhere classified (principal); I31.3 Pericardial effusion (noninflammatory); R10.11 Right upper quadrant pain

== ENCOUNTER 2018-06-07 11:22 | Emergency (ER) | payer MEDICARE, OTHER ==
[~2018-06-07] VITALS: Ht 167.6 cm; Wt 98.4 kg
--- NOTE | ~2018-06-07 | EKG ---
[place], [place] ELECTROCARDIOGRAM REPORT NAME: ALESSANDRA VEGA JR UNIT #: [id number] ROOM: DOCTOR: EPIPHANY DRAFT REPORT BIRTHDATE: [birth year] [facility] [place] Test Date: 2018-06-07 Test Time: 11:42:44 Pat Name: ALESSANDRA VEGA Department: Room: Gender: Applique Cutter: Catherine Pantoja : 1950 Requested By: NHAN PATINO Order Number: [id number] Reading MD: Neris Terrazas MD Measurements Intervals [place] Rate: 89 P: 38 MA: 162 QRS: 36 QRSD: 105 T: QT: 450 QTc: 548 Interpretive Statements Sinus rhythm Borderline T wave abnormalities Prolonged QT interval Baseline wander in lead(s) V3 Compared to ECG 05/20/2018 03:23:43 T-wave abnormality now present Prolonged QT interval now present ST (T wave) deviation no longer present Electronically Signed On 06-07-2018 16:02:26 PST by Neris Terrazas MD CM:EKGRPT:ELECTROCARDIOGRAM REPORT [id number] 1602 NHAN FORD DRAFT REPORT NHAN PATINO M.D.
[~2018-06-07 11:22] MED LIST changes: -TYLENOL EXTRA500 MG PO
[2018-06-07 12:06] LABS: BASO % 0.4 % (0.0-1.0); EOS # 0.2 10*3/uL (0.0-0.4); EOS % 2.2 % (1.0-4.0); HEMATOCRIT 36.2 % (42.0-52.0); HEMOGLOBIN 12.3 g/dl (14.0-18.0); LYMPH # 1.4 10*3/uL (1.3-4.4); LYMPH % 19.7 % (27.0-41.0); MEAN CELL VOLUME 90.3 fl (80.0-94.0); MEAN CORPUSCULAR HGB 30.7 pg (27.0-31.0); MEAN PLATELET VOLUME 8.7 fl (9.6-12.3); MONO # 0.8 10*3/uL (0.1-1.0); MONO % 10.8 % (3.0-9.0); NEUT # 4.8 10*3/uL (2.3-7.9); NEUT % 66.6 % (47.0-73.0); PLATELET COUNT AUTOMATED 242 10*3/uL (130-400); RED BLOOD COUNT 4.01 10*6/uL (4.50-5.90); WHITE BLOOD COUNT 7.3 10*3/uL (4.8-10.8)
[2018-06-07 12:21] LABS: ALBUMIN 3.3 gm/dl (3.1-4.5); ALKALINE PHOSPHATASE 85 U/L (45-117); BUN 13 mg/dl (7-24); CHLORIDE 104 mmol/L (98-107); CREATININE 0.85 mg/dL (0.70-1.30); POTASSIUM 3.4 mmol/L (3.5-5.1); SGOT/AST 17 IU/L (3-35); SGPT/ALT 23 U/L (12-78); SODIUM 139 mmol/L (136-145); TOTAL PROTEIN 7.3 gm/dL (6.4-8.2)
[2018-06-07 17:33] VITALS: BP 148/82
[2018-06-12] MEDS ORDERED: TYLENOL EXTRA500 MG PO (12:19)
== END 2018-06-07 17:50 | disposition short-term general hospital (02) ==
LOC: ED 11:22
PROVIDERS: Emergency Medicine
DX: I31.3 Pericardial effusion (noninflammatory) (principal); K21.9 Gastro-esophageal reflux disease without esophagitis; E78.5 Hyperlipidemia, unspecified; I10 Essential (primary) hypertension; E66.01 Morbid (severe) obesity due to excess calories; Z88.8 Allergy status to other drugs, medicaments and biological substances; Z79.899 Other long term (current) drug therapy; Z90.49 Acquired absence of other specified parts of digestive tract

== ENCOUNTER → 2018-07-17 | Outpatient (CLI) | payer MEDICARE, OTHER ==
[~2018-07-17] MED LIST changes: +TYLENOL EXTRA500 MG PO
== END | disposition home or self-care (01) ==
LOC: CARD 10:15
DX: I07.1 Rheumatic tricuspid insufficiency (principal); I11.9 Hypertensive heart disease without heart failure

== ENCOUNTER → 2018-09-06 | Outpatient (CLI) | payer MEDICARE, OTHER ==
[2018-09-06 11:53] LABS: BASO % 0.2 % (0.0-1.0); EOS # 0.1 10*3/uL (0.0-0.4); EOS % 2.8 % (1.0-4.0); HEMATOCRIT 40.2 % (42.0-52.0); HEMOGLOBIN 13.4 g/dl (14.0-18.0); LYMPH # 1.6 10*3/uL (1.3-4.4); LYMPH % 34.9 % (27.0-41.0); MEAN CELL VOLUME 88.9 fl (80.0-94.0); MEAN CORPUSCULAR HGB 29.6 pg (27.0-31.0); MEAN CORPUSCULAR HGB CONC 33.3 g/dl (33.0-37.0); MONO # 0.4 10*3/uL (0.1-1.0); MONO % 7.7 % (3.0-9.0); NEUT # 2.6 10*3/uL (2.3-7.9); NEUT % 54.2 % (47.0-73.0); PLATELET COUNT AUTOMATED 176 10*3/uL (130-400); RED BLOOD COUNT 4.52 10*6/uL (4.50-5.90); RED CELL DISTRI WIDTH 14.1 % (0-14.5); WHITE BLOOD COUNT 4.7 10*3/uL (4.8-10.8)
[2018-09-06 12:27] LABS: ALBUMIN 3.6 gm/dl (3.1-4.5); ALKALINE PHOSPHATASE 70 U/L (45-117); BUN 16 mg/dl (7-24); CHLORIDE 107 mmol/L (98-107); CREATININE 1.09 mg/dL (0.70-1.30); POTASSIUM 3.6 mmol/L (3.5-5.1); SGOT/AST 36 IU/L (3-35); SGPT/ALT 55 U/L (12-78); SODIUM 139 mmol/L (136-145); TOTAL PROTEIN 6.8 gm/dL (6.4-8.2)
== END | disposition home or self-care (01) ==
LOC: LAB 11:19
PROVIDERS: Specialist
DX: I31.3 Pericardial effusion (noninflammatory) (principal); R07.89 Other chest pain

== ENCOUNTER → 2019-03-05 | Outpatient (CLI) | payer MEDICARE, OTHER ==
[2019-03-05 13:42] LABS: CREATININE 1.05 mg/dL (0.70-1.30)
== END | disposition home or self-care (01) ==
LOC: MRI 12:47 → LAB 12:47 → MRI 13:00
PROVIDERS: Radiology Diagnostic Radiology
DX: G93.89 Other specified disorders of brain (principal); R10.9 Unspecified abdominal pain

== ENCOUNTER → 2019-03-18 | Outpatient (CLI) | payer MEDICARE, OTHER | END | disposition home or self-care (01) | LOC: US 03-14 16:00 | DX: K76.0 Fatty (change of) liver, not elsewhere classified (principal) ==

== ENCOUNTER → 2022-06-20 | Outpatient (CLI) | payer MEDICARE, OTHER | END | disposition home or self-care (01) | LOC: RAD 08:44 | PROVIDERS: ATTEND Family Medicine | DX: K59.89 Other specified functional intestinal disorders (principal); R13.10 Dysphagia, unspecified ==

== ENCOUNTER → 2022-10-13 | Outpatient (CLI) | payer OTHER | END | disposition home or self-care (01) | LOC: CT 12:46 | PROVIDERS: ATTEND Internal Medicine | DX: I67.82 Cerebral ischemia (principal); I69.811 Memory deficit following other cerebrovascular disease ==

== ENCOUNTER 2023-02-06 14:04 | Emergency (ER) | payer MEDICARE, OTHER ==
[~2023-02-06] VITALS: Ht 167.6 cm; Wt 93.0 kg
[2023-02-06 14:15] VITALS: BP 142/81
== END 2023-02-06 17:16 | disposition home or self-care (01) ==
LOC: ED 14:04
DX: M25.551 Pain in right hip (principal); M25.571 Pain in right ankle and joints of right foot; M25.561 Pain in right knee; I10 Essential (primary) hypertension; E78.5 Hyperlipidemia, unspecified; Z91.048 Other nonmedicinal substance allergy status; Z88.2 Allergy status to sulfonamides; Z79.899 Other long term (current) drug therapy; Z90.49 Acquired absence of other specified parts of digestive tract; W18.39XA Other fall on same level, initial encounter; Y93.89 Activity, other specified; Y92.89 Other specified places as the place of occurrence of the external cause; Y99.8 Other external cause status

== ENCOUNTER 2024-09-14 15:28 | Emergency (ER) | payer MEDICARE, OTHER ==
[~2024-09-14] VITALS: Ht 167.6 cm; Wt 93.0 kg
[2024-09-14 15:49] VITALS: BP 149/86
[2024-09-14] MEDS ORDERED: Ondansetron Hydrochloride 4 MG/2 ML VIAL IV ONE (16:00)
[2024-09-14] MEDS ORDERED: SODIUM CHLORIDE 0.9% 1,000 ML IV ONE (16:00)
[2024-09-14] MEDS ORDERED: MORPHINE Sulfate 2 MG/ML SYR IV ONE (16:00)
[2024-09-14 16:16] LABS: BASO % 0.2 % (0.0-1.0); EOS # 0.2 10*3/uL (0.0-0.4); EOS % 2.1 % (1.0-4.0); MEAN CELL VOLUME 89.3 fl (80.0-94.0); MEAN CORPUSCULAR HGB 30.5 pg (27.0-31.0); MEAN CORPUSCULAR HGB CONC 34.1 g/dl (33.0-37.0); MEAN PLATELET VOLUME 9.9 fl (9.6-12.3); MONO # 0.6 10*3/uL (0.1-1.0); MONO % 7.2 % (3.0-9.0); NEUT # 5.2 10*3/uL (2.3-7.9); NEUT % 63.2 % (47.0-73.0); PLATELET COUNT AUTOMATED 185 10*3/uL (130-400); RED BLOOD COUNT 4.59 10*6/uL (4.50-5.90); RED CELL DISTRI WIDTH 12.7 % (0-14.5); WHITE BLOOD COUNT 8.2 10*3/uL (4.8-10.8)
[2024-09-14 16:35] LABS: BUN 14 mg/dl (9-23); CHLORIDE 101 mmol/L (98-107); POTASSIUM 3.7 mmol/L (3.4-5.1)
[2024-09-14 17:33] LABS: BILIRUBIN Negative (Negative); BLOOD Negative (Negative); CLARITY Clear (Clear); COLOR Yellow (Yellow); GLUCOSE Negative (Negative); KETONE Negative (Negative); LEUKO ESTERASE Trace (Negative); NITRITE Negative (Negative); SPECIFIC GRAVITY <= 1.005 (1.001-1.030); UROBILINOGEN 0.2 E.U./dl (0.0-1.0)
[2024-09-14] MEDS ORDERED: metroNIDAZOLE 500 MG TAB PO ONE (17:55)
[2024-09-14] MEDS ORDERED: Ciprofloxacin Hydrochloride 500 MG TAB PO ONE (17:55)
[2024-09-14] MEDS ORDERED: CIPRO500 MG PO (17:57)
[2024-09-14] MEDS ORDERED: METRONIDAZOLE500 M1 PO (17:57)
[2024-09-14] MEDS ORDERED: DICYCLOMINE HYD20 MG PO (17:57)
== END 2024-09-14 18:55 | disposition home or self-care (01) ==
LOC: ED 15:28
PROVIDERS: Emergency Medicine
DX: K57.92 Diverticulitis of intestine, part unspecified, without perforation or abscess without bleeding (principal); I10 Essential (primary) hypertension; E78.5 Hyperlipidemia, unspecified; F32.A Depression, unspecified; F41.9 Anxiety disorder, unspecified; Z91.048 Other nonmedicinal substance allergy status; Z88.8 Allergy status to other drugs, medicaments and biological substances; Z79.899 Other long term (current) drug therapy; Z90.49 Acquired absence of other specified parts of digestive tract

== ENCOUNTER 2024-10-31 18:38 | Emergency (ER) | payer MEDICARE, OTHER ==
[~2024-10-31] VITALS: Wt 91.6 kg
[~2024-10-31 18:38] MED LIST changes: +CIPRO500 MG PO; +DICYCLOMINE HYD20 MG PO; +METRONIDAZOLE500 M1 PO
[2024-10-31 19:01] LABS: BILIRUBIN Negative (Negative); BLOOD 3+ (Negative); CLARITY Clear (Clear); COLOR Yellow (Yellow); GLUCOSE Negative (Negative); KETONE Negative (Negative); LEUKO ESTERASE Trace (Negative); NITRITE Negative (Negative); SPECIFIC GRAVITY 1.015 (1.001-1.030); UROBILINOGEN 0.2 E.U./dl (0.0-1.0)
[2024-10-31 19:07] LABS: RBC TNTC rbc/hpf (0-2)
[2024-10-31 19:08] LABS: BACTERIA 1+; EPITHELIAL CELLS 0-2; WBC 0-2 wbc/hpf (0-5)
[2024-10-31 19:16] LABS: BASO % 0.5 % (0.0-1.0); EOS # 0.3 10*3/uL (0.0-0.4); EOS % 4.3 % (1.0-4.0); HEMATOCRIT 38.6 % (42.0-52.0); MEAN CELL VOLUME 90.6 fl (80.0-94.0); MEAN CORPUSCULAR HGB 31.2 pg (27.0-31.0); MEAN CORPUSCULAR HGB CONC 34.5 g/dl (33.0-37.0); MEAN PLATELET VOLUME 9.7 fl (9.6-12.3); MONO # 0.5 10*3/uL (0.1-1.0); NEUT # 3.2 10*3/uL (2.3-7.9); NEUT % 52.8 % (47.0-73.0); PLATELET COUNT AUTOMATED 178 10*3/uL (130-400); RED BLOOD COUNT 4.26 10*6/uL (4.50-5.90); RED CELL DISTRI WIDTH 12.8 % (0-14.5)
[2024-10-31 19:36] LABS: ALKALINE PHOSPHATASE 64 U/L (46-116); BUN 17 mg/dl (9-23); CHLORIDE 105 mmol/L (98-107); POTASSIUM 3.9 mmol/L (3.4-5.1); SGPT/ALT 19 U/L (5-49); TOTAL PROTEIN 6.5 gm/dL (6.0-8.0)
[2024-10-31] MEDS ORDERED: CIPRO500 MG PO (22:19)
[2024-10-31] MEDS ORDERED: Ciprofloxacin Hydrochloride 500 MG TAB PO ONE (22:20)
[2024-10-31 22:27] VITALS: BP 154/84
[2024-10-31] MEDS ORDERED: HYDROCODONE-AC1 EAC1 PO (22:27)
[2024-10-31] MEDS ORDERED: Acetaminophen/Hydrocodone 5 MG/325 MG TABLET PO ONE (22:30)
== END 2024-10-31 22:42 | disposition home or self-care (01) ==
LOC: ED 18:38
PROVIDERS: Nurse Practitioner Family
DX: K86.2 Cyst of pancreas (principal); R31.9 Hematuria, unspecified; I10 Essential (primary) hypertension; E78.00 Pure hypercholesterolemia, unspecified; K21.9 Gastro-esophageal reflux disease without esophagitis; F32.A Depression, unspecified; F41.9 Anxiety disorder, unspecified; Z79.899 Other long term (current) drug therapy; Z88.8 Allergy status to other drugs, medicaments and biological substances; Z90.49 Acquired absence of other specified parts of digestive tract; Z98.890 Other specified postprocedural states